=== PATIENT | male | born 1955 | race Caucasian/White ===

== ENCOUNTER 2018-09-15 00:47 | Emergency (ER) | payer OTHER ==
[~2018-09-15] VITALS: Ht 177.8 cm; Wt 90.7 kg
--- OUTSIDE RECORDS SUMMARY | 2018-09-15 00:50 | XMS REPORT | Summary of Care ---
Author Organization Unknown Address Unknown Phone Unavailable Encounter [facility](YAIR) [id number] Date(s): 02/25/15 - 02/25/15 [facility] [address] [facility] provided by [employer] [place] [address]- Discharge Disposition: Home Physician Attending: Mag Edwards MD Vital Signs 1 2 3 Most recent to oldest [Reference Range]: 177.8 cm (02/23/15 3:38 PM) Height 98.3 DegF (02/25/15 10:55 AM) Temperature Oral [96.4-99.1 DegF] 136/84 mmHg (02/25/15 2:00 PM) 115/72 mmHg (02/25/15 1:45 PM) 113/87 mmHg (02/25/15 1:30 PM) Blood Pressure [90-140/60-90 mmHg] 16 BRMIN (02/25/15 2:00 PM) 16 BRMIN (02/25/15 1:45 PM) 15 BRMIN (02/25/15 1:30 PM) Respiratory Rate [14-20 BRMIN] 55 bpm *LOW* (02/25/15 2:00 PM) 57 bpm *LOW* (02/25/15 1:45 PM) 56 bpm *LOW* (02/25/15 1:30 PM) Peripheral Pulse Rate [60-100 bpm] 88.182 kg (02/23/15 3:38 PM) Weight 27.89 m2 (02/23/15 3:38 PM) Body Mass Index Problem List Condition Effective Dates Status Health Status Informant Carpal tunnel 2010 Resolved syndrome(Confirmed) Diabetes mellitus 02/25/13 Resolved type 2(Confirmed)1 Dry skin(Confirmed)2 Active Erectile Active dysfunction(Confirme d) Hyperlipidemia(Confi Active rmed) Hypertension(Confirm Active ed) Neck pain(Confirmed) Active Skin 2008 Resolved cancer(Confirmed)3 1pt states he changed his diet and it "went away" 2on feet 3moles that were mallignant removed from left upper arm Allergies, Adverse Reactions, Alerts Substance Reaction Severity Status NKDA Active Medications acetaminophen-hydrocodone 325 mg-5 mg oral tablet 2 tab, Route: PO, Drug Form: TAB, Dosing Weight 88.182, kg, ONCE, PRN Pain Score 4-6, Start date: 02/25/15 13:39:00 Notes: (Same as: [place] 325/5) Do not exceed 4gm/day of acetaminophen. Start Date: 02/25/15 Stop Date: 02/26/15 Status: Discontinued Ancef 2 gm, 100 mL, Route: IV, Drug form: INJ, ONCE, Dosing Weight 88.182, kg, Start d ate: 02/25/15 11:29:00, Stop date: 02/25/15 11:29:00 Notes: Same as Ancef Start Date: 02/25/15 Stop Date: 02/25/15 Status: Completed hydromorphone 1 mg, 0.5 mL, Route: IVP, Drug form: INJ, ONCE, Dosing Weight 88.182, kg, PRN Pa in Score 7-10, Start date: 02/25/15 13:39:00 Notes: Same as Dilaudid Start Date: 02/25/15 Stop Date: 02/26/15 Status: Discontinued ibuprofen 800 mg, 1 tab, Route: PO, Drug form: TAB, ONCE, Dosing Weight 88.182, kg, PRN Pa in Score 1-3, Start date: 02/25/15 13:39:00 Notes: (Same as: Motrin)"Do Not Crush" Take with food. Start Date: 02/25/15 Stop Date: 02/26/15 Status: Discontinued ondansetron 4 mg, 2 mL, Route: IVP, Drug form: INJ, ONCE, Dosing Weight 88.182, kg, PRN Naus ea & Vomiting, Start date: 02/25/15 13:39:00 Notes: (Same as: Lucius) MEDICATION WASTE Product Size: 4 mgProduct Was negar: ___ mg Start Date: 02/25/15 Stop Date: 02/26/15 Status: Discontinued promethazine + Sodium Chloride 0.9% IV 50 mL 12.5 mg, 0.5 mL, Route: IVPB, ONCE, Dosing Weight 88.182, kg, PRN Nausea & Vomiting, Start date: 02/25/15 13:39:00 Notes: Do not give IV push. (Same as: Phenergan) Start Date: 02/25/15 Stop Date: 02/25/15 Status: Discontinued Sodium Chloride 0.45% IV 1,000 mL 1,000 mL, Rate: 125 ml/hr, Infuse over: 8 hr, Route: IV, Dosing Weight 88.182 kg , Total Volume: 1,000, Start date: 02/25/15 13:39:00, Duration: 30 day, Stop naveen e: 03/27/15 13:38:00 Start Date: 02/25/15 Stop Date: 02/26/15 Status: Discontinued Results No data available for this section Immunizations No data available for this section Procedures Procedure Date Related Diagnosis Body Site Carpal tunnel release 02/25/13 Spinal fusion 02/25/13 Social History Social History Type Response Substance Abuse Use: None. Alcohol Current, Frequency: 1-2 times per month. Previous treatment: None. Smoking Status Never smoker; Exposure to Tobacco Smoke None; Cigarette Smoking Last 365 Days No; Reg Smoking Cessation Counseling No Assessment and Plan No data available for this section
--- OUTSIDE RECORDS SUMMARY | 2018-09-15 00:50 | XMS REPORT ---
Author Author [facility] Address Unknown Phone Unavailable Care Team Providers Care Stain Maker Name Role Phone Unavailable Unavailable Problems This patient has no known problems. Allergies, Adverse Reactions, Alerts This patient has no known allergies or adverse reactions. Medications This patient has no known medications. Encounters Start Date/Time End Date/Time Encounter Type Admission Type Attending [facility] Facility Care Department Encounter ID 2017-05-02 00:00:00 2017-05-02 00:00:00 Outpatient [facility] [id number] 2017-05-01 07:26:19 2017-05-01 07:26:19 Outpatient [facility] [id number] 2017-04-24 14:45:34 2017-04-24 14:45:34 Outpatient [facility] [id number]
--- OUTSIDE RECORDS SUMMARY | 2018-09-15 00:50 | XMS REPORT | Clinical Summary ---
Author Author [facility] Organization [facility] Address Unknown Phone Unavailable Care Team Providers Care Health Promoter Name Role Phone Lily Taylor MD PCP Allergies No Known Allergies Current Medications Prescription Sig. Disp. Refills Start End Date Status Date tamsulosin (FLOMAX) 0.4 Take 1 capsule by mouth 90 capsule 3 04/24/20 Active mg extended release daily. 17 capsuleIndications: Benign non-nodular prostatic hyperplasia without lower urinary tract symptoms mometasone (NASONEX) 50 2 Sprays by each nostril 17 g 10 04/24/20 Active mcg/actuation nasal route daily. 17 sprayIndications: Seasonal allergic rhinitis due to pollen tamsulosin (FLOMAX) 0.4 Take 0.4 mg by mouth 04/24/20 Discontin mg extended release daily. 17 ued capsule Hospital, Clinic, or Ordered Dose Route Frequency Start End Date Status Other Facility Date Administered Medication Tdap vaccine (BOOSTRIX) 0.5 mL IM ONCE 04/24/20 04/24/20 Ended injection 0.5 17 17 mLIndications: Need for Tdap vaccination Active Problems Problem Noted Date Essential hypertension 04/24/2017 Seasonal allergic rhinitis due to pollen 04/24/2017 Benign non-nodular prostatic hyperplasia without lower urinary tract 04/24/2017 symptoms Encounters Date Type Specialty Care Team Description 04/24/2017 Office Visit Family Practice Lily Taylor MD Essential hypertension (Primary Dx); Pure hypercholesterolemia; Screening for prostate cancer; Seasonal allergic rhinitis due to pollen; Sleep disorder breathing; Benign non-nodular prostatic hyperplasia without lower urinary tract symptoms; Need for Tdap vaccination after 04/22/2017 Immunizations Name Dates Previously Given Next Due TDap (Tetanus Toxoid, 04/24/2017 Reduced Diphtheria Toxoid And Acellular Pertussis, Absorbed) Family History Medical History Relation Name Comments Cancer Father Heart Mother Cancer Sister Relation Name Status Comments Brother Alive Brother Alive Father Mother Alive Sister Alive Sister Alive Sister Alive Sister Alive Sister Alive Social History Tobacco Use Types Packs/Day Years Used Date Never Smoker Alcohol Use Drinks/Week oz/Week Comments Yes 1 Cans of 0.6 beer Sex Assigned at Date Recorded Not on file Last Filed Vital Signs Vital Sign Reading Time Taken Blood Pressure 150/94 04/24/2017 3:38 PM CDT Pulse 52 04/24/2017 2:45 PM CDT Temperature 37.1 C (98.8 F) 04/24/2017 2:45 PM CDT Respiratory Rate 18 04/24/2017 2:45 PM CDT Oxygen Saturation - - Inhaled Oxygen - - Concentration Weight 89.5 kg (197 lb 6.4 oz) 04/24/2017 2:45 PM CDT Height 177 cm (5' 9.69") 04/24/2017 2:45 PM CDT Body Mass Index 28.58 04/24/2017 2:45 PM CDT Plan of Treatment Health Maintenance Due Date Last Done Comments COLORECTAL CANCER SCRN 2003 ANNUAL (FIT/FOBT) AGE 50 TO 75 Results * HEMOGLOBIN A1C (05/01/2017 7:27 AM) Component Value Ref Range Hemoglobin A1c 7.7 (H) 4.3 - 6.1 % Est Average Gluc 174.3 mg/dL Specimen Performing Laboratory Blood MISYS * PSA (05/01/2017 7:27 AM) Component Value Ref Range PSA 3.24 <4.0 ng/mL Specimen Performing Laboratory Blood MISYS * LIVER PROFILE (05/01/2017 7:27 AM) Component Value Ref Range T Protein 6.4 6.4 - 8.2 g/dL Albumin 3.8 3.4 - 5.0 g/dL T Bilirubin 0.8 0.2 - 1.0 mg/dL Alk Phos 54 45 - 117 U/L AST 14 (L) 15 - 37 U/L ALT 24 12 - 78 U/L D Bilirubin 0.2 0.0 - 0.2 mg/dL Specimen Performing Laboratory Blood MISYS * LIPID PROFILE (05/01/2017 7:27 AM) Component Value Ref Range Cholesterol 140 <200 mg/dL Comment: REFERENCE RANGE: Desirable: <200 mg/dL Borderline: 200-240 mg/dL High Risk: >240 mg/dL Triglyceride 64 mg/dL Comment: REFERENCE RANGE: Normal: <150 mg/dL Borderline High: 150-199 mg/dL High: 200-499 mg/dL Very High: >gn=207 mg/dL HDL 41 40 - 60 mg/dL Comment: Increased CHD risk: <40 mg/dL Decreased CHD risk: >60 mg/dL LDL 86 mg/dL Comment: REFERENCE RANGE: Optimal: <100 mg/dL Near Optimal: 100-129 mg/dL Borderline High: 130-159 mg/dL High: 160-189 mg/dL Very High: >dl=435 mg/dL Specimen Performing Laboratory Blood MISYS * HEPATITIS PANEL (05/01/2017 7:27 AM) Component Value Ref Range HCV IgG Negative NEG HBsAg Negative NEG HAV, IgM Negative NEG HBcAb, IgM Negative NEG Specimen Performing Laboratory Blood MISYS * BASIC METABOLIC PANEL (05/01/2017 7:27 AM) Component Value Ref Range CO2 27.6 21 - 32 mmol/L Chloride 106 98 - 107 mmol/L Potassium 4.4 3.50 - 5.10 mmol/L Sodium 142 136 - 145 mmol/L Glucose 163 (H) 70 - 99 mg/dL Urea Nitrogen 17 7 - 18 mg/dL Creatinine 0.90 0.60 - 1.30 mg/dL Anion Gap 8.4 Calcium 8.8 8.50 - 10.20 mg/dL GFR, Estimated >60 mL/min/1.73 m2 GFR, Estim, Afr-Am >60 mL/min/1.73 m2 Specimen Performing Laboratory Blood MISYS after 04/22/2017
--- OUTSIDE RECORDS SUMMARY | 2018-09-15 00:50 | XMS REPORT | Continuity of Care Document ---
Author Author [facility] Address Unknown Phone Unavailable Problems Problem Status Onset Date Classification Date Reported Comments Source Essential hypertension Active 04/24/2017 Problem 04/23/2018 [facility] Seasonal allergic rhinitis due to pollen Active 04/24/2017 Problem 04/23/2018 [facility] Benign non-nodular prostatic hyperplasia without lower urinary tract symptoms Active 04/24/2017 Problem 04/23/2018 [facility] DEGENERAION OF CERVICAL DISC 722.4 Active 11/13/2014 [facility] Diabetes mellitus type 2<sup>1</sup> Resolved 02/25/2013 Problem 02/28/2015 1pt states he changed his diet and it "went away" [facility] Carpal tunnel syndrome Resolved 11/13/2010 Problem 02/28/2015 [facility] Skin cancer<sup>3</sup> Resolved 11/13/2007 Problem 02/28/2015 3moles that were mallignant removed from left upper arm [facility] Dry skin<sup>2</sup> Active Problem 02/28/2015 2on feet [facility] Erectile dysfunction Active Problem 02/28/2015 [facility] Hyperlipidemia Active Problem 02/28/2015 [facility] Hypertension Active Problem 02/28/2015 [facility] Neck pain Active Problem 02/28/2015 [facility] Medications Medication Details Route Status Patient Instructions Ordering Provider Order Date Source Tdap vaccine (BOOSTRIX) injection 0.5 mL Intramuscular Inactive 04/24/2017 [facility] Tamsulosin 0.4 Mg Capsule Take 0.4 mg by mouth daily. Oral No Longer Active 04/24/2017 [facility] Tamsulosin 0.4 Mg Capsule Flomax 0.4 Mg Capsule Take 1 capsule by mouth daily. Oral Active 04/24/2017 [facility] Mometasone 50 McG/Actuation Nasal [place] Nasonex 50 McG/Actuation [place] 2 Sprays by each nostril route daily. Active 04/24/2017 [facility] Sodium Chloride 0.0769 MEQ/ML Injectable Solution 1,000 mL, Rate: 125 ml/hr, Infuse over: 8 hr, Route: IV, Dosing Weight 88.182 kg, Total Volume: 1,000, Start date: 02/25/15 13:39:00, Duration: 30 day, Stop date: 03/27/15 13:38:00 No Longer Active 02/25/2015 [facility] Ondansetron 4 mg, 2 mL, Route: IVP, Drug form: INJ, ONCE, Dosing Weight 88.182, kg, PRN Nausea & Vomiting, Start date: 02/25/15 13:39:00Notes: (Same as: Zofran) MEDICATION WASTE Product Size: 4 mg Product Wasted: ___ mg No Longer Active 02/25/2015 [facility] Promethazine 12.5 mg, 0.5 mL, Route: IVPB, ONCE, Dosing Weight 88.182, kg, PRN Nausea & Vomiting, Start date: 02/25/15 13:39:00Notes: Do not give IV push. (Same as: Phenergan) Inactive 02/25/2015 [facility] Acetaminophen 325 MG / Hydrocodone Bitartrate 5 MG Oral Tablet 2 tab, Route: PO, Drug Form: TAB, Dosing Weight 88.182, kg, ONCE, PRN Pain Score 4-6, Start date: 02/25/15 13:39:00Notes: (Same as: [place] 325/5) Do not exceed 4gm/day of acetaminophen. No Longer Active 02/25/2015 [facility] Ibuprofen 800 mg, 1 tab, Route: PO, Drug form: TAB, ONCE, Dosing Weight 88.182, kg, PRN Pain Score 1-3, Start date: 02/25/15 13:39:00Notes: (Same as: Motrin) "Do Not Crush" Take with food. No Longer Active 02/25/2015 [facility] Hydromorphone 1 mg, 0.5 mL, Route: IVP, Drug form: INJ, ONCE, Dosing Weight 88.182, kg, PRN Pain Score 7-10, Start date: 02/25/15 13:39:00Notes: Same as Dilaudid No Longer Active 02/25/2015 [facility] Ancef 2 gm, 100 mL, Route: IV, Drug form: INJ, ONCE, Dosing Weight 88.182, kg, Start date: 02/25/15 11:29:00, Stop date: 02/25/15 11:29:00Notes: Same as Ancef Inactive 02/25/2015 [facility] Allergies, Adverse Reactions, Alerts Substance Category Reaction Severity Reaction type Status Date Reported Comments Source Immunizations Immunization Date Given Site Status Last Updated Comments Source TDap (Tetanus Toxoid, Reduced Diphtheria Toxoid And Acellular Pertussis, Absorbed) 04/24/2017 completed [facility] Results Order Name Results Value Reference Range Date Interpretation Comments Source BASIC METABOLIC PANEL CO2 27.6 mmol/L 21 - 32 05/01/2017 [facility] BASIC METABOLIC PANEL Chloride 106 mmol/L 98 - 107 05/01/2017 [facility] BASIC METABOLIC PANEL Potassium 4.4 mmol/L 3.5 - 5.1 05/01/2017 [facility] BASIC METABOLIC PANEL Sodium 142 mmol/L 136 - 145 05/01/2017 [facility] BASIC METABOLIC PANEL Glucose 163 mg/dL 70 - 99 05/01/2017 High [facility] BASIC METABOLIC PANEL Urea Nitrogen 17 mg/dL 7 - 18 05/01/2017 [facility] BASIC METABOLIC PANEL Creatinine 0.90 mg/dL 0.6 - 1.3 05/01/2017 [facility] BASIC METABOLIC PANEL Anion Gap 8.4 05/01/2017 [facility] BASIC METABOLIC PANEL Calcium 8.8 mg/dL 8.5 - 10.2 05/01/2017 [facility] BASIC METABOLIC PANEL GFR, Estimated >60 mL/min/1.73 m2 05/01/2017 [facility] BASIC METABOLIC PANEL GFR, Estim, Afr-Am >60 mL/min/1.73 m2 05/01/2017 [facility] BASIC METABOLIC PANEL Lab Interpretation Abnormal 05/01/2017 [facility] HEMOGLOBIN A1C Hemoglobin A1c 7.7 % 4.3 - 6.1 05/01/2017 High [facility] HEMOGLOBIN A1C Est Average Gluc 174.3 mg/dL 05/01/2017 [facility] HEMOGLOBIN A1C Lab Interpretation Abnormal 05/01/2017 [facility] HEPATITIS PANEL HCV IgG Negative NEG 05/01/2017 [facility] HEPATITIS PANEL HBsAg Negative NEG 05/01/2017 [facility] HEPATITIS PANEL HAV, IgM Negative NEG 05/01/2017 [facility] HEPATITIS PANEL HBcAb, IgM Negative NEG 05/01/2017 [facility] LIPID PROFILE Cholesterol 140 mg/dL <200 05/01/2017 REFERENCE RANGE: Desirable: <200 mg/dL Borderline: 200-240 mg/dL High Risk: >240 mg/dL [facility] LIPID PROFILE Triglyceride 64 mg/dL 05/01/2017 REFERENCE RANGE: Normal: <150 mg/dL Borderline High: 150-199 mg/dL High: 200-499 mg/dL Very High: >ux=968 mg/dL [facility] LIPID PROFILE HDL 41 mg/dL 40 - 60 05/01/2017 Increased CHD risk: <40 mg/dL Decreased CHD risk: >60 mg/dL [facility] LIPID PROFILE LDL 86 mg/dL 05/01/2017 REFERENCE RANGE: Optimal: <100 mg/dL Near Optimal: 100-129 mg/dL Borderline High: 130-159 mg/dL High: 160-189 mg/dL Very High: >zs=805 mg/dL [facility] LIVER PROFILE T Protein 6.4 g/dL 6.4 - 8.2 05/01/2017 [facility] LIVER PROFILE Albumin 3.8 g/dL 3.4 - 5 05/01/2017 [facility] LIVER PROFILE T Bilirubin 0.8 mg/dL 0.2 - 1 05/01/2017 [facility] LIVER PROFILE Alk Phos 54 U/L 45 - 117 05/01/2017 [facility] LIVER PROFILE AST 14 U/L 15 - 37 05/01/2017 Low [facility] LIVER PROFILE ALT 24 U/L 12 - 78 05/01/2017 [facility] LIVER PROFILE D Bilirubin 0.2 mg/dL 0 - 0.2 05/01/2017 [facility] LIVER PROFILE Lab Interpretation Abnormal 05/01/2017 [facility] PSA PSA 3.24 ng/mL <4.0 05/01/2017 [facility] Spine cervical w contrast CT Spine cervical w contrast CT CT scan of the cervical spine post discography from 02/25/2015. FINDINGS: The patient is status post interbody fusion with anterior screw-plate fixation at C6-C7. Anterior aspects of fusion cage/graft appear to be incorporated into endplates. There may be some areas of bridging bone across interspace anteriorly, however more posteriorly interbody fusion does not appear to be solid. Contrast is present in the C3-C4, C4-C5, and C5-C6 interspaces. C3-C4 there is no definite nuclear herniation, however bilateral lateral annular fissures extending to both uncovertebral joints are present. C4-C5 shows mild nuclear flattening with posterior nuclear bulging. No definite focal posterior nuclear herniation seen. Bilateral lateral pain or fissures extend into both uncovertebral joints. C5-C6 shows mild nuclear flattening and diffuse bulging with a small left posterior lateral nuclear herniation with extravasation of contrast. Diffuse annular fissuring seen extending into left uncovertebral joint. IMPRESSION: 1. C5-C6 shows mild disc degeneration with a small left posterior lateral nuclear herniation an associated annular fissuring. There is extravasation of contrast material. 2. C3-C4 and C4-C5 levels show mild disc degeneration with annular fissuring as described above. No definite nuclear herniation seen. 02/25/2015 - - Read by: Mag Edwards MD Dictated Date/time: 02/26/15 19:21 Electronically Signed by: Mag Edwards MD 02/26/15 19:32 FINAL REPORT [facility] Vital Signs Vital Sign Value Date Comments Source Systolic (mm Hg) 150 04/24/2017 [facility] Diastolic (mm Hg) 94 04/24/2017 [facility] Heart Rate 52 04/24/2017 [facility] Temperature Oral (F) 37.11 [place] 04/24/2017 [facility] Respitory Rate 18 04/24/2017 [facility] Height 177 cm 04/24/2017 [facility] Weight 89.54 04/24/2017 [facility] BMI Calculated 28.58 04/24/2017 [facility] Systolic (mm Hg) 136 02/25/2015 [facility] Diastolic (mm Hg) 84 02/25/2015 [facility] Respitory Rate 16 02/25/2015 [facility] Heart Rate 55 02/25/2015 [facility] Systolic (mm Hg) 115 02/25/2015 [facility] Diastolic (mm Hg) 72 02/25/2015 [facility] Heart Rate 57 02/25/2015 [facility] Respitory Rate 16 02/25/2015 [facility] Systolic (mm Hg) 113 02/25/2015 [facility] Diastolic (mm Hg) 87 02/25/2015 [facility] Heart Rate 56 02/25/2015 [facility] Respitory Rate 15 02/25/2015 [facility] Temperature Oral (F) 98.3 F 02/25/2015 [facility] Weight 88.182 02/23/2015 [facility] BMI Calculated 27.89 02/23/2015 [facility] Height 177.8 cm 02/23/2015 [facility] Encounters Location Location Details Encounter Type Encounter Number Reason For Visit Attending Provider ADM Date DC Date Status Source [facility] Day Surgery [id number] Mag Edwards 02/25/2015 02/26/2015 [facility] Office Visit [id number] Essential hypertension Pure hypercholesterolemia Screening for prostate cancer Seasonal allergic rhinitis due to pollen Sleep disorder breathing Benign non-nodular prostatic hyperplasia without lower urinary tract symptoms Need for Tdap vaccination Lily Taylor MD 04/24/2017 04/24/2017 [facility] Procedures Procedure Code Date Perfomer Comments Source Carpal tunnel release [id number] 02/25/2013 [facility] Spinal fusion [id number] 02/25/2013 [facility]
--- OUTSIDE RECORDS SUMMARY | 2018-09-15 00:50 | XMS REPORT | Summary of Care ---
Author Author Celine Arriaga M.A. Unknown Address [facility] Phone Unavailable Care Team Providers Care Insulation Foreman Name Role Phone KAUSHIK SNOW M.D. Unavailable EDY BARNEY TNKAUSHIK Unavailable Unavailable Unavailable Unavailable Functional Status Name Dates Details Functional status health issues are not documented Status: Name Dates Details Cognitive status health issues are not documented Status: Problems Name Dates Details Benign prostatic hyperplasia, unspecified whether lower urinary tract symptoms present (600.00, N40.0) Status: Active Glucose intolerance (impaired glucose tolerance) (790.22, R73.02) Status: Active Pain of left heel (729.5, M79.672) Status: Active Type 2 diabetes mellitus without complication, without long-term current use of insulin (250.00, E11.9) Status: Active Other osteoarthritis of spine, 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 * Start : 25-May-2018 Active Meloxicam 7.5 MG Oral Tablet TAKE 1 TABLET BY MOUTH EVERY DAY * Quantity: 30 Refills: 0 KAUSHIK SNOW M.D. * Start : 22-Jun-2018 End : 19-Sep-2018 Active Allergies and Adverse Reactions Name Dates Details No Known Allergies (Allergy) Status: Active Past Medical History Name Dates Details History of Cervical spine degeneration (721.0, M47.812) Status: Resolved Procedures Procedure Dates Details History of Cervical vertebral fusion Completed History of Neuroplasty Decompression Median Nerve At Carpal Tunnel Completed History of Eye Surgery Completed Immunization Name Dates Details Fluzone Quadrivalent 0.5 ML Intramuscular Suspension Prefilled Syringe Lot #: [id number] on: 20-Aug-2018 Family History Name Dates Details Family history of malignant neoplasm (V16.9, Z80.9) Status: Active Name Dates Details Family history of type 2 diabetes mellitus (V18.0, Z83.3) Status: Active Family history of malignant neoplasm (V16.9, Z80.9) Status: Active Social History Name Dates Details - Status: Name Dates Details Never smoker Vital Signs Date Test Result Details [id number] BP Systolic 119 mm[Hg] Status: Comments: Location: LUE; Position: Sitting BP Diastolic 70 mm[Hg] Status: Comments: Location: LUE; Position: Sitting Physical Findings 2 Status: Comments: Pain Scale Height 70 in Status: Weight 196.4 lb Status: Body Mass Index Calculated 28.18 kg/m2 Status: Body Surface Area Calculated 2.07 m2 Status: Heart Rate 61 /min Status: Respiration Rate 16 /min Status: Temperature 98.6 f Status: Comments: Method: Oral Results Date Description Value Details Results not documented Plan of Care Name Dates Details Planned Observations Planned Goals not documented Planned Encounters Appointment; KAUSHIK SNOW M.D. On: 21-Dec-2018 10:00 Interventions Provided Medication Changes* Meloxicam 7.5 MG Oral Tablet - Renew * MetFORMIN HCl - 500 MG Oral Tablet - Renew Follow-ups/Referrals* Physical Therapy Referral; To Be Done: 20 Aug 2018 * Follow-up visit in 4 months; Done: 20 Aug 2018 Medications/Immunizations Administered* Fluzone Quadrivalent 0.5 ML Intramuscular Suspension Prefilled Syringe; Done: 20 Aug 2018 Plan* Restart metformin. Continue other medications same. Flu shot. RTC in 4 months. Instructions Name Dates Details Instructions not documented Encounters Appointment; KAUSHIK SNOW M.D. Encounter Diagnosis: Problem not documented On: 24-May-2018 9:30 Appointment; KAUSHIK SNOW M.D. Encounter Diagnosis: Problem not documented On: 24-May-2018 10:00 Appointment; [address] Encounter Diagnosis: Problem not documented On: 18-Jun-2018 10:00 Appointment; KAUSHIK SNOW M.D. Encounter Diagnosis: Problem not documented On: 22-Jun-2018 10:30 Appointment; KAUSHIK SNOW M.D. Encounter Diagnosis: Problem not documented On: 14-Aug-2018 14:15 Appointment; KAUSHIK SNOW M.D. Encounter Diagnosis: Problem not documented On: 14-Aug-2018 14:15 Appointment; KAUSHIK SNOW M.D. Encounter Diagnosis: Problem not documented On: 20-Aug-2018 14:45
[2018-09-15] MEDS ORDERED: ACYCLOVIR400 MG PO (01:05)
[2018-09-15] MEDS ORDERED: GABAPENTIN100 MG PO (01:07)
== END 2018-09-15 01:19 | disposition home or self-care (01) ==
LOC: ER 00:47
DX: R07.89 Other chest pain (principal); B02.9 Zoster without complications
CPT/HCPCS: 99282

== ENCOUNTER → 2020-06-19 | Outpatient (CLI) | payer MEDICARE ==
[~2020-06-19] MED LIST: ACYCLOVIR400 MG PO; GABAPENTIN100 MG PO
--- NOTE | 2020-06-19 12:24 | Diagnostic Imaging Report ---
EXAMINATION: CERVICAL SPINE 4 OR 5 VIEWS, THORACIC SPINE 2VW, SP LUMBAR, COMPLETE MIN 4VW INDICATION: Neck, back pain COMPARISON: None FINDINGS: Cervical spine: AP, lateral, oblique, and odontoid images demonstrate no acute fracture or dislocation. Minimal anterolisthesis at C4-5. Status post anterior cervical discectomy and fusion at C6-7. Moderate multilevel degenerative changes with disc space narrowing and osteophyte formation. Soft tissues appear unremarkable. Thoracic spine: No acute osseous injury. Vertebral body heights are maintained. Alignment is anatomic. Minimal multilevel degenerative changes with disc space narrowing and small osteophyte formation. Lumbar spine: AP, oblique and lateral images demonstrate no acute fracture. Vertebral body heights are maintained. Alignment is anatomic. Minimal degenerative changes with disc space narrowing and small osteophyte formation at L5-S1. Oblique images demonstrate no evidence of spondylolysis. Scattered atherosclerotic arterial calcifications. 5 mm right renal calculus. Phleboliths in the pelvis. IMPRESSION: No acute osseous injury of the cervical, thoracic, or lumbar spine. Postoperative findings of the cervical spine. Minimal anterolisthesis at C4-5. Moderate cervical spine degenerative changes. Mild degenerative changes of the thoracic and lumbar spine as above. 5 mm right renal calculus. Signed by: Deng Reynolds MD on 06/19/2020 12:21 PM
== END ==
LOC: RAD 11:28
PROVIDERS: ATTEND Family Medicine
DX: N40.1 Benign prostatic hyperplasia with lower urinary tract symptoms (principal); R97.20 Elevated prostate specific antigen [PSA]; M50.90 Cervical disc disorder, unspecified, unspecified cervical region; M51.14 Intervertebral disc disorders with radiculopathy, thoracic region; M51.17 Intervertebral disc disorders with radiculopathy, lumbosacral region
CPT/HCPCS: 72050; 72070; 72110

== ENCOUNTER → 2021-05-06 | Outpatient (CLI) | payer MEDICARE ==
[~2021-05-06] MED LIST changes: +LACTATED RINGER'S 1,000 ML ONE
[2021-05-06 08:37] LABS: BASOPHILS % 0.7 % (0.0-1.0); EOSINOPHILS # (AUTO) 0.1 (0.0-0.4); EOSINOPHILS % 1.9 % (0.0-6.0); HEMATOCRIT 46.4 % (38.2-49.6); HEMOGLOBIN 15.1 g/dL (14.0-18.0); LYMPHOCYTES # (AUTO) 1.2 (1.0-3.2); LYMPHOCYTES % 20.8 % (18.0-39.1); MEAN CORPUSCULAR HEMOGLOBIN 30.5 pg (28-32); MEAN CORPUSCULAR HGB CONC 32.5 g/dL (31-35); MEAN CORPUSCULAR VOLUME 93.7 fL (81-99); MONOCYTES # (AUTO) 0.7 (0.2-0.8); MONOCYTES % 11.1 % (4.4-11.3); NEUTROPHILS # (AUTO) 3.8 (2.1-6.9); NEUTROPHILS % 65.2 % (38.7-80.0); PLATELET COUNT 160 x10e3/uL (140-360); RED BLOOD COUNT 4.95 x10e6/uL (4.3-5.7)
[2021-05-06 09:08] LABS: ANION GAP 14.1 mmol/L (8-16); CALCIUM 8.8 mg/dL (8.4-10.2); CREATININE, SERUM 0.87 mg/dL (0.72-1.25); POTASSIUM 4.1 mmol/L (3.5-5.1)
== END ==
LOC: OR 06:44
PROVIDERS: ATTEND Family Medicine
DX: M54.2 Cervicalgia (principal); Z01.818 Encounter for other preprocedural examination
CPT/HCPCS: 36415; 71046; 72141; 80048; 82948; 85025; 93005; J7121

== ENCOUNTER → 2023-05-09 | Day surgery (SDC) | payer MEDICARE ==
[2023-05-03 16:32] LABS: BASOPHILS % 0.6 % (0.0-1.0); EOSINOPHILS # (AUTO) 0.1 (0.0-0.4); EOSINOPHILS % 2.6 % (0.0-6.0); HEMATOCRIT 43.8 % (38.2-49.6); HEMOGLOBIN 14.6 g/dL (14.0-18.0); LYMPHOCYTES # (AUTO) 1.4 (1.0-3.2); LYMPHOCYTES % 25.2 % (18.0-39.1); MEAN CORPUSCULAR HEMOGLOBIN 30.9 pg (28-32); MEAN CORPUSCULAR HGB CONC 33.3 g/dL (31-35); MEAN CORPUSCULAR VOLUME 92.6 fL (81-99); MONOCYTES # (AUTO) 0.7 (0.2-0.8); MONOCYTES % 11.9 % (4.4-11.3); NEUTROPHILS # (AUTO) 3.2 (2.1-6.9); NEUTROPHILS % 59.3 % (38.7-80.0); PLATELET COUNT 160 x10e3/uL (140-360); RED BLOOD COUNT 4.73 x10e6/uL (4.3-5.7)
[~2023-05-09] MED LIST changes: +FENTANYL CITRATE/PF 100MCG/2 ML INJ ONE; +GLIMEPIRIDE2 MG PO; +HYOSCYAMINE SULFATE 0.5 MG/ML INJ ONE; +LIDOCAINE HCL 2% LOCAL INJ 5 ML SDV VIAL INJ ONE; +METFORMIN HCL500 MG PO; +MIDAZOLAM HCL 2 MG/2 ML VIAL ONE; +PROPOFOL IV EMULSION 10 MG/ML 20 ML VIAL ONE
[2023-05-09 12:35] VITALS: TEMP 97.3
[2023-05-09 12:55] VITALS: BP 110/80; PULSE 73; RESP 18; O2SAT 98
== END | disposition home or self-care (01) ==
LOC: OR 10:25
PROVIDERS: ATTEND Internal Medicine Gastroenterology
DX: K29.50 Unspecified chronic gastritis without bleeding (principal); D12.2 Benign neoplasm of ascending colon; K20.90 Esophagitis, unspecified without bleeding; K21.9 Gastro-esophageal reflux disease without esophagitis; K57.30 Diverticulosis of large intestine without perforation or abscess without bleeding; K64.8 Other hemorrhoids; E11.9 Type 2 diabetes mellitus without complications; E78.00 Pure hypercholesterolemia, unspecified; M54.2 Cervicalgia; N40.0 Benign prostatic hyperplasia without lower urinary tract symptoms; F32.A Depression, unspecified; Z01.810 Encounter for preprocedural cardiovascular examination; Z01.812 Encounter for preprocedural laboratory examination; Z79.84 Long term (current) use of oral hypoglycemic drugs; Z79.899 Other long term (current) drug therapy; Z68.27 Body mass index [BMI] 27.0-27.9, adult
CPT/HCPCS: 36415 ×2; 43239; 45385; 82948; 85025; 93005; C9113; J1980; J2001; J2250; J2704; J3010; J7121

== ENCOUNTER → 2025-03-03 | Day surgery (SDC) | payer MEDICARE ==
[2025-02-19 09:13] LABS: BASOPHILS % 0.6 % (0.0-1.0); EOSINOPHILS # (AUTO) 0.2 (0.0-0.4); EOSINOPHILS % 4.6 % (0.0-6.0); HEMATOCRIT 44.4 % (38.2-49.6); HEMOGLOBIN 14.4 g/dL (14.0-18.0); LYMPHOCYTES # (AUTO) 1.4 (1.0-3.2); LYMPHOCYTES % 26.8 % (18.0-39.1); MEAN CORPUSCULAR HEMOGLOBIN 29.9 pg (28-32); MEAN CORPUSCULAR HGB CONC 32.4 g/dL (31-35); MEAN CORPUSCULAR VOLUME 92.1 fL (81-99); MONOCYTES # (AUTO) 0.6 (0.2-0.8); MONOCYTES % 10.9 % (4.4-11.3); NEUTROPHILS # (AUTO) 2.9 (2.1-6.9); NEUTROPHILS % 56.7 % (38.7-80.0); PLATELET COUNT 148 x10e3/uL (140-360); RED BLOOD COUNT 4.82 x10e6/uL (4.3-5.7); RED CELL DISTRIBUTION WIDTH 13.4 % (11.7-14.4); WHITE BLOOD COUNT 5.04 x10e3/uL (4.8-10.8)
[~2025-03-03] MED LIST changes: +ASPIRIN81 MG PO; +GLUCAGON FOR INJ 1 MG VIAL ONE; -LACTATED RINGER'S 1,000 ML ONE; +METOCLOPRAMIDE HCL 10 MG/2ML VIAL ONE; -MIDAZOLAM HCL 2 MG/2 ML VIAL ONE; -PROPOFOL IV EMULSION 10 MG/ML 20 ML VIAL ONE; +PROPOFOL IV EMULSION 50 ML IV ONE; +TERAZOSIN HCL1 MG PO
[2025-03-03] MEDS: LACTATED RINGER'S 1,000 ML ONE (11:24)
[2025-03-03 13:52] VITALS: TEMP 97.7
[2025-03-03 14:30] VITALS: BP 111/74; PULSE 54; RESP 16; O2SAT 96
== END | disposition home or self-care (01) ==
LOC: OR 11:10
PROVIDERS: ATTEND Internal Medicine Gastroenterology
DX: K29.60 Other gastritis without bleeding (principal); K63.5 Polyp of colon; K25.9 Gastric ulcer, unspecified as acute or chronic, without hemorrhage or perforation; K29.80 Duodenitis without bleeding; K31.89 Other diseases of stomach and duodenum; K20.90 Esophagitis, unspecified without bleeding; K59.09 Other constipation; K57.30 Diverticulosis of large intestine without perforation or abscess without bleeding; K64.8 Other hemorrhoids; Z71.3 Dietary counseling and surveillance; E11.9 Type 2 diabetes mellitus without complications; R00.1 Bradycardia, unspecified; Z71.89 Other specified counseling; E78.00 Pure hypercholesterolemia, unspecified; F32.A Depression, unspecified; Z01.810 Encounter for preprocedural cardiovascular examination; Z01.812 Encounter for preprocedural laboratory examination; Z79.82 Long term (current) use of aspirin; Z79.84 Long term (current) use of oral hypoglycemic drugs; Z79.899 Other long term (current) drug therapy
CPT/HCPCS: 36415 ×2; 43239; 45385; 82948; 85025; 93005; J1610; J1980; J2003; J2470; J2704; J2765; J3010; J7121; 45378

== ENCOUNTER 2025-03-29 22:03 | Emergency (ER) | payer MEDICARE ==
[~2025-03-29] VITALS: Ht 177.8 cm; Wt 85.7 kg
[~2025-03-29 22:03] MED LIST changes: -FENTANYL CITRATE/PF 100MCG/2 ML INJ ONE; -GLUCAGON FOR INJ 1 MG VIAL ONE; -HYOSCYAMINE SULFATE 0.5 MG/ML INJ ONE; -LIDOCAINE HCL 2% LOCAL INJ 5 ML SDV VIAL INJ ONE; -METOCLOPRAMIDE HCL 10 MG/2ML VIAL ONE; -PROPOFOL IV EMULSION 50 ML IV ONE
[2025-03-29 22:10] VITALS: PULSE 75; RESP 18; TEMP 98.6
[2025-03-29 23:23] VITALS: BP 127/93; PULSE 58; RESP 17; TEMP 98.1; O2SAT 99
== END 2025-03-29 23:27 | disposition home or self-care (01) ==
LOC: ER 22:06
DX: M79.652 Pain in left thigh (principal); D17.24 Benign lipomatous neoplasm of skin and subcutaneous tissue of left leg; E11.9 Type 2 diabetes mellitus without complications
CPT/HCPCS: 93971; 99282